=== PATIENT | female | born 1965 | race Caucasian/White ===

== ENCOUNTER 2021-03-01 16:38 | Emergency (ER) | payer BC ==
[2021-03-01] MEDS ORDERED: EPINEPHrine 1 MG/ML SDV IM ONE (16:43)
[2021-03-01] MEDS ORDERED: diphenhydrAMINE 50 MG/ML SDV IM ONE (16:43)
[2021-03-01] MEDS ORDERED: methylPREDNISolone Sodium Succinate 125 MG/2 ML SDV IM ONE (16:44)
--- NOTE | 2021-03-01 16:46 | EDM.PDOC ---
ED HPI GENERAL MEDICAL PROBLEM - General Chief Complaint: Bite:Animal, Insect Stated Complaint: BEE STING SOB/HIVES Time Seen by Provider: 03/01/21 16:41 Source of Information: Reports: Patient, RN Notes Reviewed History Limitations: Reports: No Limitations - History of Present Illness INITIAL COMMENTS - FREE TEXT/NARRATIVE: 55-year-old female presents emergency department today following a bee sting, she states she feels short of breath she is itchy all over and she is now developed a rash on her trunk as he was stung in the toe on the left foot - Related Data Allergies Allergy/AdvReac Type Severity Reaction Status Date / Time amoxicillin Allergy Hives Verified 03/01/21 16:41 bee venom protein (honey bee) Allergy Itching Verified 03/01/21 16:41 Home Meds: Home Meds Acyclovir 400 mg PO BID 03/01/21 [History] Citalopram [Citalopram HBr] 20 mg PO DAILY 03/01/21 [History] EPINEPHrine [Epipen 2-Sammy] 0.3 mg IJ ONETIME #2 auto.injct 03/01/21 [Rx] lisinopriL [Lisinopril] 10 mg PO DAILY 03/01/21 [History] Past Medical History Cardiovascular History: Reports: Hypertension Social & Family History - Tobacco Use Tobacco Use Status *Q: Never Tobacco User ED ROS GENERAL - Review of Systems Review Of Systems: See Below HEENT: Reports: No Symptoms Respiratory: Reports: No Symptoms Cardiovascular: Reports: No Symptoms Skin: Reports: Pruritis, Rash ED EXAM, ANIMAL BITE - Physical Exam Exam: See Below Text/Narrative:: Hives developing on the trunk Exam Limited By: No Limitations General Appearance: Alert, WD/WN, No Apparent Distress Throat/Mouth: Normal Inspection, Normal Lips, Normal Teeth, Normal Gums, Normal Oropharynx, Normal Voice, No Airway Compromise Respiratory/Chest: No Respiratory Distress, Lungs Clear, Normal Breath Sounds, No Accessory Muscle Use, Chest Non-Tender Cardiovascular: Regular Rate, Rhythm, No Murmur Course - Vital Signs Last Recorded V/S: Last Vital Signs Temp 96.8 F L 03/01/21 16:40 Pulse 60 03/01/21 16:40 Resp 20 03/01/21 16:40 BP 131/62 03/01/21 16:40 Pulse Ox 94 L 08/07/21 16:40 - Orders/Labs/Meds Meds: Medications Discontinued Medications Generic Name Dose Route Start Last Admin Trade Name [place] PRN Reason Stop Dose Admin Diphenhydramine HCl 25 mg 03/01/21 16:43 03/01/21 16:51 Diphenhydramine 50 Mg/Ml Sdv IM 03/01/21 16:44 25 mg ONETIME ONE Administration Epinephrine HCl 0.4 mg 03/01/21 16:43 03/01/21 16:50 Epinephrine 1 Mg/Ml Sdv IM 03/01/21 16:44 0.4 mg ONETIME ONE Administration Methylprednisolone Sodium Succinate 125 mg 03/01/21 16:44 03/01/21 16:53 Methylprednisolone Sodium Succinate 125 Mg/2 Ml Sdv IM 03/01/21 16:45 125 mg ONETIME ONE Administration Departure - Departure Time of Disposition: 17:40 Disposition: Home, Self-Care 01 Condition: Fair Clinical Impression: Allergic reaction Qualifiers: Encounter type: initial encounter Qualified Code(s): T78.40XA - Allergy, unspecified, initial encounter Insect bite Qualifiers: Encounter type: initial encounter Site of insect bite: toe Toe: unspecified toe Laterality: left Qualified Code(s): S90.465A - Insect bite (nonvenomous), left lesser toe(s), initial encounter; W57.XXXA - Bitten or stung by nonvenomous insect and other nonvenomous arthropods, initial encounter - Discharge Information Prescriptions: EPINEPHrine [Epipen 2-Sammy] 0.3 mg IJ ONETIME #2 auto.injct Instructions: Bee, Wasp, or Hornet Sting, Adult Forms: ED Department Discharge Additional Instructions: Continue to use Benadryl as needed, your EpiPen has been faxed to [facility] call return to the emergency department worsening symptoms Sepsis Event Note (ED) - Evaluation Sepsis Screening Result: No Definite Risk - Focused Exam Vital Signs: Vital Signs Temp Pulse Resp BP Pulse Ox 03/01/21 16:40 96.8 F L 60 20 131/62 94 L - Assessment/Plan Plan: Assessment Acuity = acute Site and laterality = allergic reaction to insect bite Etiology = unknown Manifestations = rash now resolved Location of injury = Home Lab values = none Plan Good improvement with Benadryl, epinephrine and Solu-Medrol prescription for EpiPen faxed to her home pharmacy follow-up primary care as needed I talked to her about 4-hour rebound but she wanted to go home is close to the hospital will return if needed This note was dictated using [employer] voice recognition software please call with any questions on syntax or grammar.
== END 2021-03-01 18:06 | disposition home or self-care (01) ==
LOC: JP.ED 16:38
DX: T63.441A Toxic effect of venom of bees, accidental (unintentional), initial encounter (principal); I10 Essential (primary) hypertension; Z79.899 Other long term (current) drug therapy
CPT/HCPCS: 96372; 99282; J0171; J1200; J2930